=== PATIENT | male | born 1965 | race Caucasian/White ===

== ENCOUNTER 2019-07-25 04:10 | Emergency (ER) | payer MEDICARE ==
[~2019-07-25] VITALS: Ht 165.1 cm; Wt 111.4 kg
[2019-07-25 04:18] VITALS: Ht 165.1 cm; Wt 111.4 kg
[2019-07-25] MEDS ORDERED: LASIX20 MG PO (04:27)
[2019-07-25] MEDS ORDERED: ZYRTEC10 MG PO (04:27)
[2019-07-25] MEDS ORDERED: PIOGLITAZONE15 MG PO (04:28)
[2019-07-25] MEDS ORDERED: ALDACTONE100 MG PO (04:28)
[2019-07-25] MEDS ORDERED: XIFAXAN550 MG PO (04:30)
[2019-07-25] MEDS ORDERED: CHRONULAC30 ML PO (04:30)
[2019-07-25 05:01] LABS: CALC OSMOLALITY 278 mosm/kg (275-300); CALCIUM 7.9 mg/dL (8.5-10.1); CARBON DIOXIDE 24.9 mmol/L (21.0-32.0); CHLORIDE - SERUM 104 mmol/L (98-107); GLUCOSE 140 mg/dL (74-106); POTASSIUM - SERUM 3.9 mmol/L (3.5-5.1); SODIUM 138 mmol/L (136-145); UREA NITROGEN 15 mg/dL (7-18); eGFR NON AFRICAN AMERICAN 82 mL/min (90-120)
[2019-07-25 05:04] LABS: APTT 39.2 SECONDS (22.8-39.4); INR 1.33 (0.85-1.17); PROTIME 16.4 SECONDS (11.6-15.0)
[2019-07-25 05:08] LABS: ALBUMIN 3.1 g/dL (3.4-5.0); ALKALINE PHOSPHATASE 120 U/L (30-120); ALT (SGPT) 48 U/L (10-68); BILIRUBIN - TOTAL 1.86 mg/dL (0.2-1.3); PROTEIN - SERUM 6.9 g/dL (6.4-8.2)
[2019-07-25 05:12] LABS: D-DIMER-QUANTITATIVE 2.5 ug/mLFEU (0.20-0.54)
[2019-07-25 05:15] LABS: BASOPHILS 0.2 % (0-2); EOSINOPHILS 1.9 % (0-7); HEMATOCRIT 35.8 % (42.0-54.0); HEMOGLOBIN 12.2 g/dL (13.5-17.5); IMMATURE GRANULOCYTES 0.2 % (0-5); LYMPHOCYTES 6.7 % (15-50); MCH 33.6 pg (26.0-34.0); MCHC 34.1 g/dL (31.0-37.0); MCV 98.6 fL (80.0-100.0); MEAN PLATELET VOLUME 9.6 fL (7.4-10.4); MONOCYTES 5.3 % (2-11); NEUTROPHILS 85.7 % (40-80); PLATELET COUNT 59 10x3/uL (130-400); RBC 3.63 10x6/uL (4.20-6.10); RDW 16.2 % (11.5-14.5); WBC 5.7 10x3/uL (4.8-10.8)
[2019-07-25 05:55] LABS: PLATELET ESTIMATE DECREASED
[2019-07-25] MEDS ORDERED: AUGMENTIN 875-11 TAB PO (07:19)
[2019-07-25 08:19] VITALS: BP 101/47
== END 2019-07-25 08:21 | disposition home or self-care (01) ==
LOC: D.ER 04:10
PROVIDERS: Family Medicine
DX: L03.115 Cellulitis of right lower limb (principal); R60.9 Edema, unspecified; E11.9 Type 2 diabetes mellitus without complications